=== PATIENT | male | born 1965 | race African-American/Black ===

== ENCOUNTER 2017-03-30 07:48 | Outpatient (CLI) | payer OTHER ==
[2017-03-30 08:53] LABS: #Basophils 0.1 thou/uL (0.0-0.2); #Eosinphils 0.1 thou/uL (0.0-0.7); #Lymphocytes 1.8 thou/uL (1.20-3.40); #Monocytes 0.6 thou/uL (0.11-0.59); #Neutrophils 4.1 thou/uL (1.40-6.50); %Eosinophils 1.9 % (0.0-10.0); %Lymphocytes 26.6 % (21.0-51.0); %Monocytes 8.6 % (0.0-10.0); Hemoglobin 16.1 g/dL (14.0-18.0); Mean Corpuscular HGB CONC 31.2 g/dL (32.0-36.0); Mean Corpuscular Hemoglobin 27.9 pg (27.0-31.0); Mean Corpuscular Volume 89.5 fl (80.0-94.0); Mean Platelet Volume 8.5 fL (7.4-10.4); Platelet Count 223 thou/uL (130-400); RBC Distribution Width 13.6 % (11.5-14.5); Red Blood Cell (RBC) Count 5.75 mill/uL (4.70-6.10); White Blood Cell (WBC) Count 6.8 thou/uL (4.8-10.8)
[2017-03-30 09:00] LABS: ALT (SGPT) 26 U/L (0-55); AST (SGOT) 18 U/L (5-34); Albumin 4.1 g/dL (3.5-5.0); Alkaline Phosphatase 75 U/L (40-150); Anion Gap 13 mmol/L (10-20); BUN (Urea Nitrogen) 15 mg/dL (8.4-25.7); Bilirubin, Total 0.5 mg/dL (0.2-1.2); Calc. Creatinine Clearance 0 mL/min (70-130); Calcium 9.1 mg/dL (7.8-10.44); Carbon Dioxide 27 mmol/L (22-29); Cardiac Risk 3.7 (Less than 4.5); Chloride 104 mmol/L (98-107); Cholesterol 183 mg/dL (< 200 Desired); Estimated GFR-MDRD 59; Globulin 2.8 g/dL (2.4-3.5); Glucose 102 mg/dL (70-105); HDL Cholesterol 49 mg/dL (>60 Neg Risk); LDL Cholesterol, Calculated 120 mg/dL; Potassium 4.6 mmol/L (3.5-5.1); Protein, Total 6.9 g/dL (6.0-8.3); Sodium 139 mmol/L (136-145); Triglycerides 71 mg/dL (Less than 150)
[2017-03-30 09:10] LABS: Hemoglobin A1c 5.4 % (4.0-6.0)
[2017-03-30 09:22] LABS: Free T4 (Free Thyroxine) 0.83 ng/dL (0.70-1.48); PSA-Asymptomatic (SCREENING) 1.53 ng/mL (0-4.0)
[2017-03-30 19:25] LABS: Albumin (w/Testosterone Panel) 4.1 g/dL
[2017-03-30 19:52] LABS: Sex Hormone Binding Globulin 24.1 nmol/L (11-78); Testosterone, Free 150.5 pg/mL (47-244); Testosterone, Total 575.7 ng/dL (221-716)
== END 2017-03-30 07:49 | disposition home or self-care (01) ==
LOC: NAV LAB 07:48
PROVIDERS: ATTEND Family Medicine
DX: Z00.00 Encounter for general adult medical examination without abnormal findings (principal)
CPT/HCPCS: 36415; 80053; 80061; 83036; 84270; 84403; 84439; 84443; 85025; G0103